=== PATIENT | female | born 1960 | race Caucasian/White ===

== ENCOUNTER 2021-03-31 10:20 | Outpatient (CLI) | payer OTHER ==
--- NOTE | 2021-03-31 10:59 | XRAY Report ---
PROCEDURE: Chest 2 View X-Ray INDICATIONS: ACUTE URI TECHNIQUE: 2 view(s) of the chest. COMPARISON: None. FINDINGS: Surgical changes and devices: Mammoplasty implants are incidentally noted. Lungs and pleura: No pleural effusions or pneumothorax. Lungs are clear. Mediastinum: Mediastinal contours are normal. Heart size is normal. Bones and chest wall: No suspicious bony abnormalities. Soft tissues appear unremarkable. IMPRESSION: Clear lungs, without infiltrates. Reviewed by: Fahad Estevez MD on 03/31/2021 9:58 AM [facility] Approved by: Fahad Estevez MD on 03/31/2021 9:58 AM [facility] Station ID: [id number]
== END 2021-03-31 23:59 | disposition home or self-care (01) ==
LOC: DI.N 10:20
PROVIDERS: ATTEND Nurse Practitioner
DX: J06.9 Acute upper respiratory infection, unspecified (principal)